=== PATIENT | male | born 1945 | race Hispanic/Latino ===

== ENCOUNTER 2018-10-10 14:12 | Inpatient (IN) | payer MEDICARE, BC ==
[2018-10-10 14:18] VITALS: BMI 29.1
[2018-10-10 15:04] LABS: BASO # 0.01 K/mm3 (0.0-2.0); HEMOGLOBIN 13.2 g/dL (14.0-18.0); LYMPH # 1.5 (1.2-3.4); LYMPH % 7.1 % (22.0-35.0); MEAN CELL VOLUME 87.4 fl (80.0-105.0); MEAN CORPUSCULAR HEMOGLOBIN 28.6 pg (25.0-35.0); MEAN CORPUSCULAR HGB CONC 32.7 g/dl (31.0-37.0); MEAN PLATELET VOLUME 9.3 fl (7.0-11.0); MONO # 1.1 (0.1-0.6); MONO % 5.3 % (1.0-6.0); RBC 4.62 10^6/uL (3.5-6.1); RED CELL DISTRIBUTION WIDTH 13.3 % (11.5-14.5); WHITE BLOOD COUNT 21.3 10^3/uL (4.5-11.0)
[2018-10-10 15:06] LABS: VENOUS BLOOD GAS BASE EXCESS 2.2 mmol/L (0.0-2.0); VENOUS BLOOD GAS PO2 102 mm/Hg (30-55); VENOUS BLOOD PH 7.41 (7.32-7.43)
--- NOTE | 2018-10-10 15:09 | ED PDOC ---
Arrival/HPI - General Historian: Spouse, Caregiver (home health aid) - History of Present Illness Narrative History of Present Illness (Text): 10/10/18 14:58 73 year old M with pmh of PVD and ACS presents with chief complaint of fever w/ cough(baseline) x1wk. Home health aid noted fever at 101.3 F this morning and immediately called Dr. Emanuel who encouraged patient to present to the emergency department. He had a Tylenol @ 1Pm today. On 09/22/18, patient had a cystoscopy performed by Dr. Kumari (urology), started on Augmentin and been having fevers ever since. denies patient having any chills, headache, dizziness, chest pain, shortness of breath, abdominal pain, nausea, vomiting, diarrhea, back pain, neck pain, or any other complaint. PCP: Dr. Emanuel Urology: Dr. Kumari Time/Duration: < week Symptom Onset: Sudden Symptom Course: Unchanged Activities at Onset: Light Context: Home Past Medical History - Provider Review Nursing Documentation Reviewed: Yes Family/Social History - Physician Review Nursing Documentation Reviewed: Yes Family/Social History: Unknown Family HX Allergies/Home Meds Allergies/Adverse Reactions: Allergies No Known Allergies Allergy (Unverified 10/10/18 14:40) Home Medications: Home Meds Medication Instructions Recorded Confirmed Aspirin [Ecotrin] 81 mg PO DAILY 10/10/18 10/10/18 Carbidopa/Levodopa [Sinemet Cr [address] PO TID 10/10/18 10/10/18 mg-100 mg] Clopidogrel [Plavix] 75 mg PO DAILY 10/10/18 10/10/18 Escitalopram [Lexapro] 10 mg PO DAILY 10/10/18 10/10/18 Fluticasone/Vilanterol [Breo 1 puff IH DAILY 10/10/18 10/10/18 Ellipta 200-25 Mcg INH] Glimepiride [Amaryl] 1 mg PO TID 10/10/18 10/10/18 Losartan [Cozaar] 50 mg PO DAILY 10/10/18 10/10/18 Magnisium 2 tab PO DAILY 10/10/18 10/10/18 Metoprolol Succinate [Kapspargo 50 mg PO DAILY 10/10/18 10/10/18 Sprinkle] Tiotropium [place] [Spiriva 2.5 mcg IH DAILY 10/10/18 10/10/18 Respimat] Review of Systems - Physician Review All systems were reviewed & negative as marked: Yes - Review of Systems Constitutional: Fevers ENT: absent: Sore Throat, Rhinorrhea Respiratory: Cough (baseline). absent: SOB, Wheezing Cardiovascular: absent: Chest Pain, Palpitations, Syncope Gastrointestinal: absent: Abdominal Pain, Diarrhea, Nausea, Vomiting, Hematochezia, Hematemesis Genitourinary Male: absent: Dysuria Musculoskeletal: absent: Arthralgias, Back Pain, Neck Pain, Myalgias Skin: absent: Rash, Laceration Neurological: absent: Headache, Dizziness Physical Exam Vital Signs Reviewed: Yes Vital Signs Temp Pulse Resp BP Pulse Ox 10/10/18 14:34 101.7 F H 96 H 18 119/71 93 L Temperature: Febrile Blood Pressure: Normal Pulse: Tachycardic Respiratory Rate: Normal Appearance: Positive for: Well-Appearing, Non-Toxic, Comfortable Pain Distress: None Mental Status: No: Alert and Oriented X 3 (A&0x1) - Systems Exam Head: Present: Atraumatic, Normocephalic Pupils: Present: PERRL Extroacular Muscles: Present: EOMI Conjunctiva: Present: Normal Mouth: Present: Moist Mucous Membranes Respiratory/Chest: Present: Other (coarse breath sounds). No: Respiratory Distress, Accessory Muscle Use Cardiovascular: Present: Normal S1, S2, Tachycardic. No: Murmurs Abdomen: No: Tenderness, Distention, Peritoneal Signs Back: Present: Normal Inspection, Other (no sacral ulcers) Upper Extremity: No: Cyanosis, Edema Lower Extremity: Present: Normal Inspection, Capillary Refill < 2 s. No: Edema Neurological: Present: Speech Normal Skin: Present: Warm, Dry, Normal Color. No: Rashes Psychiatric: Present: Alert, Normal Insight, Normal Concentration. No: Oriented x 3 (0x1) Medical Decision Making ED Course and Treatment: 10/10/18 15:09 Impression: 73 year old M presents with chief complaint of fever w/ cough(baseline) x1wk Plan: -- Labs -- EKG -- Motrin -- Urinalysis -- Reassess and disposition Prior Visits: Notes and results from previous visits were reviewed. Patient was last seen in the emergency department on Progress Notes: 10/10/18 15:03 Code sepsis called 10/10/18 16:[address] Koch who accepts to admit patient and put under his service. - RAD Interpretation Narrative RAD Interpretations (Text): 10/10/18 16:20 Chest X-ray -- No active disease. Radiology Orders: 10/10/18 14:40 CHEST PORTABLE [RAD] Stat Brick Machine Operator: Radiologist - Scribe Statement The provider has reviewed the documentation as recorded by the Miltonibpuma Martin All medical record entries made by the Scribe were at my direction and personally dictated by me. I have reviewed the chart and agree that the record accurately reflects my personal performance of the history, physical exam, medical decision making, and the department course for this patient. I have also personally directed, reviewed, and agree with the discharge instructions and disposition. Disposition/Present on Arrival - Disposition Referrals: Chris Emanuel MD [Primary Care Provider] - Follow up with primary
[2018-10-10 15:10] LABS: INR 1.22; PARTIAL THROMBOPLASTIN TIME 28.2 Seconds (26.9-38.3); PROTHROMBIN TIME 13.5 SECONDS (9.4-12.5)
[2018-10-10 15:13] LABS: ALBUMIN 3.9 g/dL (3.0-4.8); ALT/SGPT 19 U/L (7-56); AST/SGOT 66 U/L (17-59); BLOOD UREA NITROGEN 23 mg/dL (7-21); CALCIUM 9.5 mg/dL (8.4-10.5); GFR NON-AFRICAN AMERICAN > 60
[2018-10-10] MEDS ORDERED: Azithromycin 500MG/NS 250ml 500 MG/250 ML BAG IVPB STA (15:13)
[2018-10-10] MEDS ORDERED: Cefepime 1gm in NS 100ml 1 GM/100 ML BAG IVPB STA (15:13)
[2018-10-10 15:24] LABS: B-TYPE NATRIURETIC PEPTIDE 223 pg/mL (0-450); TROPONIN I < 0.01 ng/mL
--- NOTE | 2018-10-10 15:39 | RAD ---
Date of service: 10/10/2018 HISTORY: Sepsis Patient COMPARISON: 10/20/2014 TECHNIQUE: 1 view obtained. FINDINGS: LUNGS: No active pulmonary disease. PLEURA: No significant pleural effusion identified, no pneumothorax apparent. CARDIOVASCULAR: No aortic atherosclerotic calcification present. Normal cardiac size. No pulmonary vascular congestion. OSSEOUS STRUCTURES: No significant abnormalities. VISUALIZED UPPER ABDOMEN: Normal. OTHER FINDINGS: None. IMPRESSION: No active disease.
[2018-10-10] MEDS ORDERED: Iohexol 350 MG/100 ML VIAL ONE (16:14)
[2018-10-10 16:45] LABS: PH,URINE 5.5 (4.7-8.0); URINE BILIRUBIN NEGATIVE (NEGATIVE); URINE BLOOD NEGATIVE (NEGATIVE); URINE GLUCOSE (UA) 250 mg/dL (NEGATIVE); URINE LEUKOCYTE ESTERASE NEGATIVE Leu/uL (NEGATIVE); URINE PROTEIN TRACE mg/dL (<30 mg/dL); URINE UROBILINOGEN 0.2 E.U./dL (<1 E.U./dL)
[2018-10-10 16:46] LABS: URINE APPEARANCE CLEAR (CLEAR); URINE COLOR YELLOW (YELLOW)
[2018-10-10 17:02] LABS: URINE BACTERIA MOD /hpf
[2018-10-10] MEDS: Insulin Reg-LOW-Coverage SC SCH ×2 (17:21→23:54)
[2018-10-10] MEDS ORDERED: Insulin Regular 1 UNITS/0.01 ML ML ONE (17:25)
--- NOTE | 2018-10-10 18:41 | CT ---
Date of service: 10/10/2018 PROCEDURE: CT Abdomen and Pelvis with contrast HISTORY: abdominal pain COMPARISON: None. TECHNIQUE: Intravenous contrast dose: 100 cc Omnipaque 300. Radiation dose: Total exam DLP = 92.96 mGy-cm. This CT exam was performed using one or more of the following dose reduction techniques: Automated exposure control, adjustment of the mA and/or kV according to patient size, and/or use of iterative reconstruction technique. FINDINGS: LOWER THORAX: Bilateral and dependent lower lobe infiltrates. LIVER: Hepatic steatosis. No focal masses. No intrahepatic bile duct dilatation or perihepatic ascites. GALLBLADDER AND BILE DUCTS: Status post cholecystectomy. No abnormality is seen in the gallbladder fossa. PANCREAS: Unremarkable. No gross lesion or ductal dilatation. SPLEEN: Unremarkable. ADRENALS: Unremarkable. No mass. KIDNEYS AND URETERS: Unremarkable. No hydronephrosis. No solid mass. VASCULATURE: Atherosclerotic calcification and mural plaque present. Findings are seen throughout the aorta which is non aneurysmal. BOWEL: Constipation without fecal impaction or obstruction. APPENDIX: A normal appendix is not visible. No right lower quadrant inflammatory abnormalities detected. PERITONEUM: Unremarkable. No free fluid. No free air. LYMPH NODES: Unremarkable. No enlarged lymph nodes. BLADDER: Unremarkable. REPRODUCTIVE: Enlarged prostate. BONES: No acute fracture. OTHER FINDINGS: None. IMPRESSION: Bilateral lower lobe infiltrates/atelectasis. In no acute intra-abdominal/pelvic abnormalities. Additional benign and/or incidental findings described above.
[2018-10-10 18:54] LABS: VENOUS BLOOD GAS BASE EXCESS 1.7 mmol/L (0.0-2.0); VENOUS BLOOD GAS PO2 71 mm/Hg (30-55); VENOUS BLOOD PH 7.39 (7.32-7.43)
--- NOTE | 2018-10-10 19:05 | PCM.SEPTIC ---
Sepsis Progress Note - Reassessment Type Date of Evaluation: 10/10/18 Time of Evaluation: 19:03 Reassessment Type: Non-invasive reassessment - Non Invasive Reassessment Were the most recent vital sign reviewed: Yes Vital Sign (Latest): Temp Pulse Resp BP Pulse Ox 98.8 F 73 19 101/69 96 10/10/18 17:38 10/10/18 18:03 10/10/18 18:03 10/10/18 17:38 10/10/18 17:38 Cardiovascular: Yes: Regular Rate, Rhythm. No: JVD, Murmur, Bradycardia, Tachycardia Respiratory: Yes: Normal Breath Sounds. No: Accessory Muscle Use, Crackles, Rales, Rhonchi, Respiratory Distress Capillary Refill: Normal (Less than 2 sec) Pulses: Normal Radial, Normal Dorsalis Pedis, Normal Posterior Tibialis Skin: Normal Color, Warm, Dry
[2018-10-10] MEDS: Non Formulary Medication (Tiotropium Bromide [Spiriva Respimat] 2.5 MCG) IH SCH (19:16)
[2018-10-10] MEDS: Carbidopa/Levodopa 25/100 CR PO SCH (19:21)
[2018-10-11] MEDS: Cefepime 1gm in NS 100ml 1 GM/100 ML BAG IVPB SCH ×4 (00:33→21:23)
[2018-10-11 07:06] LABS: HEMOGLOBIN 11.6 g/dL (14.0-18.0); MEAN CELL VOLUME 87.4 fl (80.0-105.0); MEAN CORPUSCULAR HEMOGLOBIN 28.1 pg (25.0-35.0); MEAN CORPUSCULAR HGB CONC 32.1 g/dl (31.0-37.0); MEAN PLATELET VOLUME 9.7 fl (7.0-11.0); RBC 4.13 10^6/uL (3.5-6.1); RED CELL DISTRIBUTION WIDTH 13.5 % (11.5-14.5); WHITE BLOOD COUNT 16.2 10^3/uL (4.5-11.0)
[2018-10-11 07:28] LABS: ALB/GLOB RATIO 0.9 (1.1-1.8); ALBUMIN 3.3 g/dL (3.0-4.8); ALT/SGPT 28 U/L (7-56); AST/SGOT 46 U/L (17-59); BLOOD UREA NITROGEN 18 mg/dL (7-21); GFR NON-AFRICAN AMERICAN > 60
[2018-10-11] MEDS ORDERED: Magnesium Sulfate 2 GM in Sodium Chloride 0.9% 100 ML IV ONE (08:31)
[2018-10-11] MEDS ORDERED: Magnesium Sulfate 2 gm/50 ml 2 GM/50 ML BAG IV ONE (08:39)
[2018-10-11] MEDS: Insulin Reg-LOW-Coverage SC SCH ×4 (08:40→22:00)
[2018-10-11] MEDS: Albuterol-Ipratrop 3 mg / 0.5 (3 ml) UD IH SCH ×3 (09:06→19:50)
[2018-10-11] MEDS: levoFLOXacin 750 mg in D5W 150 ML BAG IVPB SCH (09:44)
[2018-10-11] MEDS: Carbidopa/Levodopa 25/100 CR PO SCH ×3 (09:51→18:31)
[2018-10-11] MEDS ORDERED: METOPROLOL SUCCINATE 50 MG PO SCH (10:00)
--- NOTE | 2018-10-11 10:34 | CARD ---
APPROVED REPORT Date of service: 10/10/2018 EKG Measurement Heart [id number] <Conclusion> Normal sinus rhythm Right bundle branch block Abnormal ECG
--- NOTE | 2018-10-11 11:33 | HP ---
DATE OF EXAM: 10/11/2018 CHIEF COMPLAINT AND HISTORY OF PRESENT ILLNESS: This is a 73-year-old male, who is coming into the hospital with fevers. The patient states that at home he had fever of 102. According to the , the patient has been having cough with productive sputum for the last week. He had seen his primary care doctor, Dr. Emanuel. The patient states that he has been taking Tylenol. He also had a cystoscopy done about [address] Kumari, the patient had been on Augmentin and still having fevers. He has no abdominal pain, no back pain, no dysuria or frequency, no nocturia, no weakness in the arm or the legs. No headaches or dizziness. No dysuria or frequency. REVIEW OF SYMPTOMS: All other review of symptoms are within normal limits except what is mentioned. PAST MEDICAL HISTORY: Peripheral arterial disease, hypertension, diabetes type 2, Parkinson's, and COPD. PAST SURGICAL HISTORY: Status post cholecystectomy. ALLERGIES: NO KNOWN DRUG ALLERGIES. HOME MEDICATIONS: He is taking Breo, magnesium, Amaryl, losartan, aspirin, metoprolol, Plavix, Lexapro, and Spiriva. FAMILY HISTORY: Noncontributory. PHYSICAL EXAMINATION: VITAL SIGNS: T-max is 101.7, pulse of 77, blood pressure 124/77, respirations 20. Height is 5 feet 5 inches, weight 175 pounds, BMI is 29.1. GENERAL: The patient is lying in bed, comfortable, and in no acute distress. HEENT: Atraumatic and normocephalic. Anicteric sclerae. Moist mucosa. [place] conjunctivae. No oral lesions. NECK: No JVD, anterior and posterior adenopathy, thyromegaly, or bruits. CARDIOVASCULAR: S1 and S2 regular. No murmurs, rubs or gallops. LUNGS: Clear to auscultation bilaterally. No wheezes, rales, or rhonchi. ABDOMEN: Bowel sounds are positive. Soft, nontender and nondistended. No hepatosplenomegaly. No rebound and no guarding EXTREMITIES: No cyanosis, clubbing, or edema. NEUROLOGIC: No facial asymmetry. Tongue is midline. No uvula deviation. Power is 5/5 upper extremities and lower extremities. Sensation intact in upper extremities and lower extremities. PSYCHIATRIC: He is awake, alert and oriented x3. No anxiety or depression. She has normal affect. GENITOURINARY: No CVA tenderness. VASCULAR: 2+ pulses in the carotid pulses and pedal pulses. SKIN: No erythema or nodules SPINE: Shows normal curvature. The patient has a mild resting tremor in the right hand. LABORATORY DATA: White count is 21.3. INR is 1.2, lactate is 4.2, sodium is 135, creatinine is 0.7, magnesium is 1.5. Urine shows white blood cells 5 to 10, glucose is 250. Chest x-rays done shows no active disease. CT of the abdomen and pelvis done shows bilateral lower lobe infiltrates. ASSESSMENT: 1. Sepsis. 2. Hospital-acquired pneumonia. 3. Hypertension. 4. Diabetes type 2. 5. Parkinson's. 6. Chronic obstructive pulmonary disease. PLAN: The patient is going to be admitted to the hospital, the patient has fever, elevated white cell count. He had a procedure about 3 weeks ago. He had a chest CT that shows bilateral infiltrates. The patient most likely has a hospital-acquired pneumonia and going to be admitted to the hospital for further management. The patient is going to be placed on IV antibiotics with cefepime and will be seen by Infectious Disease. He has blood cultures and urine cultures that had been ordered. He is going to get repeat blood work tomorrow. The patient has low magnesium, so I will replace his magnesium. The patient is receiving Plavix at home and will continue he is on carbidopa and levodopa for his Parkinson's, this will be continued as well. He is on heart healthy diet. The patient will also get DuoNeb treatments. I will get his Application Analyst, Dr. Gonzalez, to see the patient. He is currently on telemetry, I will discontinue telemetry. I did speak to the patient's at the bedside to give an update and the patient's diagnosis and plan of care. He will most likely need physical therapy as well, because of the history of Parkinson's and he will most likely get decondition. We will continue to follow closely. Jermaine Koch MD [facility] # [id number]
--- NOTE | 2018-10-11 14:53 | CP.PCM.APN ---
Subjective - Date & Time of Evaluation Date of Evaluation: 10/11/18 Time of Evaluation: 09:30 - Subjective Subjective: pt seen and examined at bedside, pt in NAD, no acute events overnight per staff Review of Systems - Constitutional Constitutional: As Per HPI Objective - Vital Signs/Intake and Output Vital Signs (last 24 hours): Temp Pulse Resp BP Pulse Ox 97.8 F 83 20 138/77 96 10/11/18 12:00 10/11/18 12:00 10/11/18 12:00 10/11/18 12:00 10/10/18 17:38 Intake and Output: 10/11/18 10/11/18 06:59 18:59 Intake Total 120 Balance 120 - Medications Medications: Current Medications Albuterol/Ipratropium (Duoneb 3 Mg/0.5 Mg (3 Ml) Ud) 3 ml IH TIDRESP [facility] Last Admin: 10/11/18 14:03 Dose: 3 ml Aspirin (Ecotrin) 81 mg PO DAILY [facility] Last Admin: 10/11/18 09:53 Dose: 81 mg Carbidopa/Levodopa (Sinemet Cr) 1 tab PO TID [facility] Last Admin: 10/11/18 09:51 Dose: 1 tab Clopidogrel Bisulfate (Plavix) 75 mg PO DAILY [facility] Last Admin: 10/11/18 09:45 Dose: 75 mg Escitalopram Oxalate (Lexapro) 10 mg PO DAILY [facility] Last Admin: 10/11/18 09:50 Dose: 10 mg Glimepiride (Amaryl) 1 mg PO TID [facility] Last Admin: 10/11/18 09:50 Dose: 1 mg Cefepime HCl (Maxipime 1gm) 1 gm in 100 mls @ 100 mls/hr IVPB Q8 [facility]; Protocol Stop: 10/19/18 22:01 Last Admin: 10/11/18 06:00 Dose: 100 mls/hr Insulin Human Regular (Humulin R Low) 0 units SC ACHS [facility]; Protocol Last Admin: 10/11/18 08:40 Dose: 1 unit Levofloxacin/Dextrose (Levaquin 750mg) 750 mg IVPB DAILY [facility]; Protocol Stop: 10/20/18 10:01 Last Admin: 10/11/18 09:44 Dose: 750 mg Losartan Potassium (Cozaar) 50 mg PO DAILY [facility] Last Admin: 10/11/18 09:45 Dose: 50 mg Non-Formulary Medication (Tiotropium [place] [Spiriva Respimat]) 5 mcg IH DAILY [facility] Non-Formulary Medication (Metoprolol Succinate [Kapspargo Sprinkle]) 50 mg PO DAILY [facility] - Labs Labs: 10/11/18 06:30 10/11/18 06:30 PT 13.5 SECONDS (9.4-12.5) H 10/10/18 14:50 INR 1.22 10/10/18 14:50 APTT 28.2 Seconds (26.9-38.3) 10/10/18 14:50 - Constitutional Appears: Non-toxic - Head Exam Head Exam: ATRAUMATIC, NORMOCEPHALIC - Eye Exam Eye Exam: Normal appearance Pupil Exam: NORMAL ACCOMODATION - Respiratory Exam Respiratory Exam: Decreased Breath Sounds, NORMAL BREATHING PATTERN - Cardiovascular Exam Cardiovascular Exam: Tachycardia, +S1, +S2 - GI/Abdominal Exam GI & Abdominal Exam: Soft, Normal Bowel Sounds - Neurological Exam Neurological Exam: Alert, Awake Additional comments: OCHOA - Psychiatric Exam Psychiatric exam: Normal Affect, Normal Mood - Skin Skin Exam: Dry, Intact Assessment and Plan - Assessment and Plan (Free Text) Plan: ITS Impressions Chest X-Ray 10/10/18 14:40 IMPRESSION: No active disease. Abdomen/Pelvis CT 10/10/18 15:31 IMPRESSION: Bilateral lower lobe infiltrates/atelectasis. In no acute intra-abdominal/pelvic abnormalities. Additional benign and/or incidental findings described above. A/P 73 yr old male with pmh sig for PVD and ACS, recent cysto 3 weeks ago admitted w ith c/o fever and cough. Fevers at home 101.3 noted, pt with leukocytosis 21.3, lactate initially 4.2 and rectal temp at 101.7. Pt was admitted for further workup. Ct scan showed bilateral lobe infiltrates and patient is now admitted for sepsis with pulmonary and ID consultation and IV antibiotic regimen. Pancultures pending will follow up BPCI/TIC - BPCIA/TIC Educated pt/family on BPCIA/CIR/Med to Bed Programs: Yes Flyers given, including [facility] Beneficiary letter: Yes Pt/family verbalized understanding & agreed to program: Yes
[2018-10-11] MEDS: TIOTROPIUM BROMIDE 5 MCG IH SCH (15:34)
[2018-10-11] MEDS: METOPROLOL SUCCINATE 50 MG PO SCH (15:35)
[2018-10-11] MEDS: Non Formulary Medication (Tiotropium Bromide [Spiriva Respimat] 2.5 MCG) IH SCH (17:50)
[2018-10-11] MEDS: Vancomycin 1gm in NS 250ml 1 GM/250 ML BAG IVPB SCH (18:17)
--- NOTE | 2018-10-11 19:14 | CP.PCM.PN ---
<Aram Connolly - Last Filed: 10/11/18 19:11> Subjective - Date & Time of Evaluation Date of Evaluation: 10/11/18 Time of Evaluation: 18:40 - Subjective Subjective: S: Patient was found to be in mild respiratory distress. Patient reported pain in his frontal and maxillary sinuses and felt like he was sweating. O: Head: pain on palpation of frontal and maxillary sinus Heart: RRR Resp: CTA B/L, reduced breath sounds at bases Abdomen: nontender, mildly distended, bowel sounds auscultated A and P: Upon presentation, vitals were within normal limits. Patient was saturating at 94-95% on nasal cannula on presentation. I started patient on flonase and mucinex as he seems congested at this time. Objective - Vital Signs/Intake and Output Vital Signs (last 24 hours): Temp Pulse Resp BP Pulse Ox 97.4 F L 76 19 113/69 96 10/11/18 18:00 10/11/18 18:00 10/11/18 18:00 10/11/18 18:00 10/10/18 17:38 - Medications Medications: Current Medications Albuterol/Ipratropium (Duoneb 3 Mg/0.5 Mg (3 Ml) Ud) 3 ml IH TIDRESP [facility] Last Admin: 10/11/18 14:03 Dose: 3 ml Aspirin (Ecotrin) 81 mg PO DAILY [facility] Last Admin: 10/11/18 09:53 Dose: 81 mg Carbidopa/Levodopa (Sinemet Cr) 1 tab PO TID [facility] Last Admin: 10/11/18 18:31 Dose: 1 tab Clopidogrel Bisulfate (Plavix) 75 mg PO DAILY [facility] Last Admin: 10/11/18 09:45 Dose: 75 mg Escitalopram Oxalate (Lexapro) 10 mg PO DAILY [facility] Last Admin: 10/11/18 09:50 Dose: 10 mg Fluticasone Propionate (Flonase) 1 actuation NS DAILY [facility] Glimepiride (Amaryl) 1 mg PO TID [facility] Last Admin: 10/11/18 18:20 Dose: 1 mg Guaifenesin (Mucinex [place]) 600 mg PO BID [facility] Cefepime HCl (Maxipime 1gm) 1 gm in 100 mls @ 100 mls/hr IVPB Q8 [facility]; Protocol Stop: 10/19/18 22:01 Last Admin: 10/11/18 15:31 Dose: 100 mls/hr Vancomycin HCl (Vancomycin 1gm) 1 gm in 250 mls @ 167 mls/hr IVPB Q12H [facility]; Protocol Stop: 10/20/18 15:31 Last Admin: 10/11/18 18:17 Dose: 167 mls/hr Insulin Human Regular (Humulin R Low) 0 units SC ACHS [facility]; Protocol Last Admin: 10/11/18 18:31 Dose: 1 unit Levofloxacin/Dextrose (Levaquin 750mg) 750 mg IVPB DAILY [facility]; Protocol Stop: 10/20/18 10:01 Last Admin: 10/11/18 09:44 Dose: 750 mg Losartan Potassium (Cozaar) 50 mg PO DAILY [facility] Last Admin: 10/11/18 09:45 Dose: 50 mg Non-Formulary Medication (Tiotropium [place] [Spiriva Respimat]) 5 mcg IH DAILY [facility] Last Admin: 10/11/18 15:34 Dose: 5 mcg Non-Formulary Medication (Metoprolol Succinate [Kapspargo Sprinkle]) 50 mg PO DAILY [facility] Last Admin: 10/11/18 15:35 Dose: 50 mg - Labs Labs: 10/11/18 06:30 10/11/18 06:30 PT 13.5 SECONDS (9.4-12.5) H 10/10/18 14:50 INR 1.22 10/10/18 14:50 APTT 28.2 Seconds (26.9-38.3) 10/10/18 14:50 <Jermaine Koch S - Last Filed: 10/12/18 06:51> Objective - Vital Signs/Intake and Output Vital Signs (last 24 hours): Temp Pulse Resp BP Pulse Ox 98 F 70 18 148/91 H 95 10/12/18 06:00 10/12/18 06:00 10/12/18 06:00 10/12/18 06:00 10/12/18 00:01 Intake and Output: 10/11/18 10/12/18 18:59 06:59 Intake Total 1890 Output Total 400 Balance 1490 - Medications Medications: Current Medications Albuterol/Ipratropium (Duoneb 3 Mg/0.5 Mg (3 Ml) Ud) 3 ml IH TIDRESP [facility] Last Admin: 10/11/18 19:50 Dose: 3 ml Aspirin (Ecotrin) 81 mg PO DAILY [facility] Last Admin: 10/11/18 09:53 Dose: 81 mg Carbidopa/Levodopa (Sinemet Cr) 1 tab PO TID [facility] Last Admin: 10/11/18 18:31 Dose: 1 tab Clopidogrel Bisulfate (Plavix) 75 mg PO DAILY [facility] Last Admin: 10/11/18 09:45 Dose: 75 mg Escitalopram Oxalate (Lexapro) 10 mg PO DAILY [facility] Last Admin: 10/11/18 09:50 Dose: 10 mg Fluticasone Propionate (Flonase) 1 actuation NS DAILY [facility] Glimepiride (Amaryl) 1 mg PO TID [facility] Last Admin: 10/11/18 18:20 Dose: 1 mg Guaifenesin (Mucinex [place]) 600 mg PO BID [facility] Last Admin: 10/11/18 21:22 Dose: 600 mg Cefepime HCl (Maxipime 1gm) 1 gm in 100 mls @ 100 mls/hr IVPB Q8 [facility]; Protocol Stop: 10/19/18 22:01 Last Admin: 10/12/18 06:01 Dose: 100 mls/hr Vancomycin HCl (Vancomycin 1gm) 1 gm in 250 mls @ 167 mls/hr IVPB Q12H [facility]; Protocol Stop: 10/20/18 15:31 Last Admin: 10/12/18 04:07 Dose: 167 mls/hr Insulin Human Regular (Humulin R Low) 0 units SC ACHS [facility]; Protocol Last Admin: 10/11/18 22:00 Dose: Not Given Levofloxacin/Dextrose (Levaquin 750mg) 750 mg IVPB DAILY [facility]; Protocol Stop: 10/20/18 10:01 Last Admin: 10/11/18 09:44 Dose: 750 mg Losartan Potassium (Cozaar) 50 mg PO DAILY [facility] Last Admin: 10/11/18 09:45 Dose: 50 mg Non-Formulary Medication (Tiotropium [place] [Spiriva Respimat]) 5 mcg IH DAILY [facility] Last Admin: 10/11/18 15:34 Dose: 5 mcg Non-Formulary Medication (Metoprolol Succinate [Kapspargo Sprinkle]) 50 mg PO DAILY [facility] Last Admin: 10/11/18 15:35 Dose: 50 mg - Labs Labs: 10/11/18 06:30 10/11/18 06:30 PT 13.5 SECONDS (9.4-12.5) H 10/10/18 14:50 INR 1.22 10/10/18 14:50 APTT 28.2 Seconds (26.9-38.3) 10/10/18 14:50 Assessment and Plan - Assessment and Plan (Free Text) Plan: Pt not seen. Note reviewed
--- NOTE | 2018-10-11 19:41 | CON ---
DATE OF CONSULTATION: 10/11/2018 The patient is seen earlier today in room 260, bed 1. CHIEF COMPLAINT: Fever x1 day and cough x1 week. HISTORY OF PRESENT ILLNESS: This is a 73-year-old male with history of acute coronary syndrome, coronary artery disease, peripheral vascular disease. The patient had a cystoscopy last month on 09/22/2018 and was given Augmentin and now is admitted with fevers, chills, and cough, and insignificant cough. The cough is chronic although now it has worsened. REVIEW OF SYSTEMS: Review of systems reveals no abdominal pain, diarrhea, or constipation. No bright red blood per rectum. No melena. A 12-point review of systems is performed. PAST MEDICAL HISTORY: Significant for acute coronary syndrome, coronary artery disease, peripheral vascular disease. PAST SURGICAL HISTORY: Significant for recent cystoscopy on 09/22/2018. ALLERGIES: THE PATIENT HAS NO KNOWN ALLERGIES. MEDICATIONS: Medications at home reveals the patient to be on Lexapro, Amaryl, carbidopa/levodopa, and the patient has Parkinson's disease also. PHYSICAL EXAMINATION: GENERAL: The patient is in bed, in no acute distress. His truck trailer mechanic is present and answering questions for him. VITAL SIGNS: Temperature of 101.7, respiratory rate of 20, and heart rate of 96 on admission with a blood pressure of 124/77. HEENT: Examination of HEENT is unremarkable. NECK: Supple. LUNGS: Have decreased breath sounds. HEART: Normal S1, S2. ABDOMEN: Soft, nontender. LABORATORY DATA: Laboratory examination reveals a white count is 21,000, hemoglobin of 13, platelets 325. Chemistries are noted. The patient's procalcitonin is less than 0.05 and creatinine is 0.5. Urinalysis is noted. Microbiology is pending. The patient had a chest x-ray, which was reported to be negative; however, a CAT scan of the abdomen and pelvis revealed an infiltrate. The patient's EKG showed a QTC of 452. ASSESSMENT AND PLAN: A 73-year-old male with Parkinson's disease, diabetes, chronic obstructive lung disease, coronary artery disease, peripheral vascular disease, and a cystoscopy on 09/22/2018, right now presenting with sepsis with bilateral healthcare-associated pneumonia, although the procalcitonin is reported to be negative, we will treat the patient with Levaquin, cefepime, and vancomycin pending blood cultures, MRSA screens, urine cultures, sputum cultures, and urine for Legionella antigen, and we will also repeat procalcitonin. We will follow closely with you pending initial workup results and culture results and imaging. Jose Whitley MD [facility] # [id number]
[2018-10-11] MEDS: guaiFENesin 600 mg ER Tab PO SCH (21:22)
[2018-10-12] MEDS: Vancomycin 1gm in NS 250ml 1 GM/250 ML BAG IVPB SCH (04:07)
[2018-10-12] MEDS: Cefepime 1gm in NS 100ml 1 GM/100 ML BAG IVPB SCH ×3 (06:01→21:33)
[2018-10-12 06:52] LABS: MEAN CELL VOLUME 88.1 fl (80.0-105.0); MEAN CORPUSCULAR HEMOGLOBIN 27.8 pg (25.0-35.0); MEAN CORPUSCULAR HGB CONC 31.6 g/dl (31.0-37.0); MEAN PLATELET VOLUME 9.5 fl (7.0-11.0); RBC 3.95 10^6/uL (3.5-6.1); RED CELL DISTRIBUTION WIDTH 13.4 % (11.5-14.5); WHITE BLOOD COUNT 8.8 10^3/uL (4.5-11.0)
[2018-10-12 07:14] LABS: ALBUMIN 3.2 g/dL (3.0-4.8); ALT/SGPT 26 U/L (7-56); AST/SGOT 37 U/L (17-59); BLOOD UREA NITROGEN 16 mg/dL (7-21); CALCIUM 8.8 mg/dL (8.4-10.5); GFR NON-AFRICAN AMERICAN > 60
[2018-10-12] MEDS: Albuterol-Ipratrop 3 mg / 0.5 (3 ml) UD IH SCH ×3 (07:54→19:29)
[2018-10-12] MEDS: Insulin Reg-LOW-Coverage SC SCH ×4 (08:21→21:32)
[2018-10-12] MEDS: guaiFENesin 600 mg ER Tab PO SCH ×2 (09:27→18:06)
[2018-10-12] MEDS: Carbidopa/Levodopa 25/100 CR PO SCH ×3 (09:27→18:06)
[2018-10-12] MEDS: METOPROLOL SUCCINATE 50 MG PO SCH (09:30)
[2018-10-12] MEDS: TIOTROPIUM BROMIDE 5 MCG IH SCH (09:30)
[2018-10-12] MEDS: levoFLOXacin 750 mg in D5W 150 ML BAG IVPB SCH (09:31)
[2018-10-12] MEDS: Fluticasone Nasal 50 mcg/Spray NS SCH (09:33)
--- NOTE | 2018-10-12 09:38 | PN ---
DATE: 10/12/2018 SUBJECTIVE: The patient has no complaints of any chest pain. No shortness of breath. No headaches. PHYSICAL EXAMINATION: VITAL SIGNS: Temperature is 98, pulse is 70, blood pressure is 140/91 and respirations 18. GENERAL: The patient is lying in bed, flat, comfortable. HEENT: No oral lesion. Anicteric sclerae. Moist mucosa. NECK: No JVD, adenopathy, or thyromegaly. CARDIOVASCULAR: S1 and S2, regular. No murmurs, rubs, or gallops. LUNGS: Clear to auscultation bilaterally. No wheeze, rales, or rhonchi. ABDOMEN: Bowel sounds are positive, soft, nontender and nondistended. EXTREMITIES: No cyanosis, clubbing or edema. LABORATORY DATA: White count of 8.8, hemoglobin 11, creatinine is 0.6. ASSESSMENT: 1. Hospital-acquired pneumonia. 2. Sepsis. 3. Hypertension. 4. Progressive supranuclear palsy. 5. Diabetes type 2. 6. Chronic obstructive pulmonary disease. PLAN: The patient is currently on losartan for hypertension. He is going to be on aspirin daily. He is on Lexapro. He is going to continue with Levaquin for antibiotics. The patient is on carbidopa and levodopa. He is on heart healthy diet. His white cell count is normal 8.8 this morning. He says he is feeling better. He had magnesium that was low that is normalize as well. I will discontinue telemetry. The patient was seen by physical therapy and it is recommended, the patient go home with . Jermaine Koch MD
--- NOTE | 2018-10-12 15:23 | PN ---
DATE: 10/12/2018 SUBJECTIVE: The patient is in bed, in no acute distress, nontoxic. PHYSICAL EXAMINATION: VITAL SIGNS: On exam, temperature is 97, blood pressure is 140/80, respiratory rate of 18. HEENT: Examination of HEENT is unremarkable. NECK: Supple. LUNGS: Have decreased breath sounds. HEART: Normal S1, S2. ABDOMEN: Soft. LABORATORY DATA: Laboratory examination reveals a white count is 8.8, hemoglobin of 11. BUN of 16, creatinine of 0.6 procalcitonin 0.07. Urinalysis is noted. Serology is reviewed. Urine for Legionella antigen is negative. Microbiology reveals the patient's blood cultures are negative. Urine cultures are negative. Review of orders reveals the patient to be on IV Levaquin and cefepime and vancomycin. ASSESSMENT AND PLAN: A 73-year-old male with a history of coronary artery disease and , peripheral vascular disease, Parkinson's disease, diabetes, chronic obstructive lung disease, had cystoscopy on 09/22/2018, now presenting with sepsis, bilateral healthcare associated pneumonia. Procalcitonin is negative thus far the blood cultures and urine cultures are negative and urine Legionella is negative and procalcitonin 0.07 today and 0.05 speaks against bacterial pneumonia. The patient's white count is improved. Can discontinue the vancomycin. Review of Dr. Moreira's note from today and may be able to switch the antibiotics to p.o. Levaquin and discontinue the Maxipime within the next 24 hours and complete with p.o. Levaquin. The patient appears to be improving.. We will check on the MRSA screen which is pending. Jose Whitley MD
[2018-10-13] MEDS: Cefepime 1gm in NS 100ml 1 GM/100 ML BAG IVPB SCH (05:03)
--- NOTE | 2018-10-13 06:14 | CP.PCM.PN ---
Subjective - Date & Time of Evaluation Date of Evaluation: 10/13/18 Time of Evaluation: 06:13 - Subjective Subjective: tbd Objective - Vital Signs/Intake and Output Vital Signs (last 24 hours): Temp Pulse Resp BP Pulse Ox 97.8 F 68 18 145/84 99 10/13/18 06:00 10/13/18 06:00 10/13/18 06:00 10/13/18 06:00 10/13/18 06:00 Intake and Output: 10/12/18 10/13/18 18:59 06:59 Intake Total 250 1576 Output Total 7 Balance 250 1569 - Medications Medications: Current Medications Albuterol/Ipratropium (Duoneb 3 Mg/0.5 Mg (3 Ml) Ud) 3 ml IH TIDRESP [facility] Last Admin: 10/12/18 19:29 Dose: 3 ml Aspirin (Ecotrin) 81 mg PO DAILY [facility] Last Admin: 10/12/18 09:27 Dose: 81 mg Carbidopa/Levodopa (Sinemet Cr) 1 tab PO TID [facility] Last Admin: 10/12/18 18:06 Dose: 1 tab Clopidogrel Bisulfate (Plavix) 75 mg PO DAILY [facility] Last Admin: 10/12/18 09:30 Dose: 75 mg Escitalopram Oxalate (Lexapro) 10 mg PO DAILY [facility] Last Admin: 10/12/18 09:30 Dose: 10 mg Fluticasone Propionate (Flonase) 1 actuation NS DAILY [facility] Last Admin: 10/12/18 09:33 Dose: 1 actuation Glimepiride (Amaryl) 1 mg PO TID [facility] Last Admin: 10/12/18 18:06 Dose: 1 mg Guaifenesin (Mucinex La) 600 mg PO BID [facility] Last Admin: 10/12/18 18:06 Dose: 600 mg Cefepime HCl (Maxipime 1gm) 1 gm in 100 mls @ 100 mls/hr IVPB Q8 [facility]; Protocol Stop: 10/19/18 22:01 Last Admin: 10/13/18 05:03 Dose: 100 mls/hr Insulin Human Regular (Humulin R Low) 0 units SC ACHS [facility]; Protocol Last Admin: 10/12/18 21:32 Dose: Not Given Levofloxacin (Levaquin) 500 mg PO DAILY [facility]; Protocol Stop: 10/18/18 10:01 Losartan Potassium (Cozaar) 50 mg PO DAILY [facility] Last Admin: 10/12/18 09:29 Dose: 50 mg Non-Formulary Medication (Tiotropium Tamms [Spiriva Respimat]) 5 mcg IH DAILY [facility] Last Admin: 10/12/18 09:30 Dose: 5 mcg Non-Formulary Medication (Metoprolol Succinate [Kapspargo Sprinkle]) 50 mg PO DAILY [facility] Last Admin: 10/12/18 09:30 Dose: 50 mg - Labs Labs: 10/12/18 06:20 10/12/18 06:20 PT 13.5 SECONDS (9.4-12.5) H 10/10/18 14:50 INR 1.22 10/10/18 14:50 APTT 28.2 Seconds (26.9-38.3) 10/10/18 14:50
[2018-10-13] MEDS: Insulin Reg-LOW-Coverage SC SCH ×4 (07:55→22:51)
[2018-10-13] MEDS: Albuterol-Ipratrop 3 mg / 0.5 (3 ml) UD IH SCH ×3 (09:01→21:10)
--- NOTE | 2018-10-13 09:10 | PN ---
DATE: 10/13/2018 SUBJECTIVE: The patient is in bed in no acute distress, nontoxic. PHYSICAL EXAMINATION: VITAL SIGNS: Temperature is 98, blood pressure is 120/70, respiratory rate of 18. HEENT: Unremarkable. NECK: Supple. LUNGS: Have decreased breath sounds. HEART: Normal S1 and S2. ABDOMEN: Soft. LABORATORY DATA: Reveals a white count of 8.8, hemoglobin of 11. Chemistries are noted. Urinalysis is reviewed. Microbiology reveals sputum cultures pending. Nares is negative. Urine cultures negative. Blood cultures are negative. The patient's procalcitonin is negative x2. MEDICATIONS: Review of orders reveals the patient to be on p.o. Levaquin and IV cefepime. ASSESSMENT AND PLAN: This is a 73-year-old male who was seen earlier today in 260 with a history of coronary artery disease, peripheral vascular disease, Parkinson's disease and diabetes, chronic obstructive lung disease, had a cystoscopy on 09/22/2018, presenting with sepsis for bilateral healthcare-associated pneumonia, negative procalcitonin x2, negative pancultures. The patient is doing much better. We will discontinue the Maxipime, complete 7 days of Levaquin p.o., today is day #4 of antibiotics, will complete three more days of p.o. Levaquin. Jose Whitley MD
[2018-10-13] MEDS: METOPROLOL SUCCINATE 50 MG PO SCH (09:54)
[2018-10-13] MEDS: Fluticasone Nasal 50 mcg/Spray NS SCH (09:55)
[2018-10-13] MEDS: guaiFENesin 600 mg ER Tab PO SCH ×2 (09:57→17:58)
[2018-10-13] MEDS: Carbidopa/Levodopa 25/100 CR PO SCH ×3 (09:58→17:57)
[2018-10-13] MEDS: levoFLOXacin 500 MG TAB PO SCH (09:58)
[2018-10-13] MEDS: TIOTROPIUM BROMIDE 5 MCG IH SCH (10:01)
--- NOTE | 2018-10-13 13:52 | PN ---
DATE: 10/13/2018 SUBJECTIVE: The patient has no complaints of any chest pain. No shortness of breath. No headaches or dizziness. He does have a cough that is better. PHYSICAL EXAMINATION: VITAL SIGNS: Temperature is 97.8, pulse is 68, blood pressure is 145/84, respirations 18. GENERAL: The patient is lying in bed, flat, comfortable. HEENT: No oral lesion. Anicteric sclerae. Moist mucosa. NECK: No JVD, adenopathy, or thyromegaly. CARDIOVASCULAR: S1 and S2, regular. No murmurs, rubs, or gallops. LUNGS: Clear to auscultation bilaterally. No wheeze, rales, or rhonchi. ABDOMEN: Bowel sounds are positive, soft, nontender and nondistended. EXTREMITIES: no cyanosis, clubbing or edema. LABS: White count of 8.8, hemoglobin 11, creatinine is 0.6. Urine culture and blood cultures have been negative. ASSESSMENT: 1. Hospital-acquired pneumonia. 2. Sepsis, improved. 3. Hypertension. 4. Progressive supranuclear palsy. 5. Diabetes type 2. 6. Chronic obstructive pulmonary disease. PLAN: The patient is currently comfortable. He is on Amaryl for his diabetes and losartan for hypertension. He is receiving Levaquin for antibiotic. He is on Lexapro for his anxiety. He is on Plavix. He is going to continue with carbidopa and levodopa. He is on a heart-healthy diet. I did speak to the patient's family at the bedside to give them update on the patient's diagnosis and plan for care. We will continue current treatment. I did review the note of Dr. Whitley. Jermaine Koch MD
[2018-10-14] MEDS: Insulin Reg-LOW-Coverage SC SCH ×4 (07:30→22:21)
[2018-10-14] MEDS: Albuterol-Ipratrop 3 mg / 0.5 (3 ml) UD IH SCH ×3 (07:37→20:30)
[2018-10-14] MEDS: levoFLOXacin 500 MG TAB PO SCH (11:03)
[2018-10-14] MEDS: guaiFENesin 600 mg ER Tab PO SCH ×2 (11:03→17:24)
[2018-10-14] MEDS: Carbidopa/Levodopa 25/100 CR PO SCH ×3 (11:04→17:23)
[2018-10-14] MEDS: TIOTROPIUM BROMIDE 5 MCG IH SCH (11:07)
[2018-10-14] MEDS: METOPROLOL SUCCINATE 50 MG PO SCH (11:07)
[2018-10-14] MEDS: Fluticasone Nasal 50 mcg/Spray NS SCH (11:18)
[2018-10-14 14:46] VITALS: O2SAT 95
--- NOTE | 2018-10-14 14:55 | PN ---
DATE: 10/14/2018 SUBJECTIVE: The patient is in bed, in no acute distress, nontoxic. PHYSICAL EXAMINATION: VITAL SIGNS: Temperature is 98, blood pressure is 140/80, respiratory rate of 18. HEENT: Unremarkable. NECK: Supple. LUNGS: Have decreased breath sounds. HEART: Normal S1, S2. ABDOMEN: Soft. LABORATORY DATA: Laboratory examination reveals a white count is 8.8, hemoglobin of 11. Chemistries are noted and urinalysis is noted and serology is reviewed. Review of orders reveals the patient is on p.o. Levaquin. ASSESSMENT AND PLAN: This is a 73-year-old male who was seen earlier today in 568, bed 2 with a history of coronary artery disease, peripheral vascular disease, Parkinson's disease, diabetes, chronic obstructive lung disease and cystoscopy, presenting with sepsis with bilateral healthcare-associated pneumonia with negative procalcitonin x2. Pancultures are negative. Today is day #5 of p.o. Levaquin, would complete 5 to 7 days. Jose Whitley MD
--- NOTE | 2018-10-14 16:15 | PN ---
DATE: 10/14/2018 SUBJECTIVE: The patient has no complaints of any chest pain or shortness of breath. No headaches or dizziness. PHYSICAL EXAMINATION: VITAL SIGNS: Temperature is 98, pulse is 67, blood pressure is 145/82, and respirations 18. GENERAL: The patient is lying in bed, flat, comfortable. HEENT: No oral lesion. Anicteric sclerae. Moist mucosa. NECK: No JVD, adenopathy, or thyromegaly. CARDIOVASCULAR: S1 and S2, regular. No murmurs, rubs, or gallops. LUNGS: Clear to auscultation bilaterally. No wheeze, rales, or rhonchi. ABDOMEN: Bowel sounds are positive, soft, nontender and nondistended. EXTREMITIES: No cyanosis, clubbing, or edema. LABORATORY DATA: White count of 8.8, hemoglobin is 11, and creatinine is 0.6. ASSESSMENT: 1. Hospital-acquired pneumonia. 2. Sepsis, improving. 3. Hypertension. 4. Progressive supranuclear palsy. 5. Diabetes type 2. 6. Chronic obstructive pulmonary disease. PLAN: The patient is currently comfortable. Blood cultures have been negative. Urine cultures have been negative. The patient is on losartan for hypertension. He is on Amaryl for diabetes. He is on Levaquin for antibiotics. The patient is receiving Mucinex for cough. The patient is on Plavix. He is on a heart-healthy diet. The patient's white count has improved. We will repeat the patient's blood work tomorrow. I did speak to the patient's aide. No issues. He is eating well. He continues to have diaphoresis at times. Jermaine Koch MD
[2018-10-14 22:49] VITALS: BP 136/80; PULSE 64; RESP 20; TEMP 97.5
[2018-10-15 07:19] LABS: MEAN CELL VOLUME 87.3 fl (80.0-105.0); MEAN CORPUSCULAR HEMOGLOBIN 28.2 pg (25.0-35.0); MEAN CORPUSCULAR HGB CONC 32.3 g/dl (31.0-37.0); MEAN PLATELET VOLUME 9.1 fl (7.0-11.0); RBC 4.26 10^6/uL (3.5-6.1); RED CELL DISTRIBUTION WIDTH 13.2 % (11.5-14.5); WHITE BLOOD COUNT 6.9 10^3/uL (4.5-11.0)
[2018-10-15 07:58] LABS: ALBUMIN 3.4 g/dL (3.0-4.8); ALT/SGPT 20 U/L (7-56); AST/SGOT 42 U/L (17-59); BLOOD UREA NITROGEN 15 mg/dL (7-21); GFR NON-AFRICAN AMERICAN > 60
[2018-10-15] MEDS: Albuterol-Ipratrop 3 mg / 0.5 (3 ml) UD IH SCH (08:00)
[2018-10-15] MEDS: Insulin Reg-LOW-Coverage SC SCH ×2 (08:48→11:49)
[2018-10-15] MEDS: guaiFENesin 600 mg ER Tab PO SCH (09:38)
[2018-10-15] MEDS: levoFLOXacin 500 MG TAB PO SCH (09:38)
[2018-10-15] MEDS: Carbidopa/Levodopa 25/100 CR PO SCH (09:38)
[2018-10-15] MEDS: Fluticasone Nasal 50 mcg/Spray NS SCH (09:39)
[2018-10-15] MEDS: METOPROLOL SUCCINATE 50 MG PO SCH (09:39)
[2018-10-15] MEDS: TIOTROPIUM BROMIDE 5 MCG IH SCH (09:40)
--- NOTE | 2018-10-15 13:01 | CP.PCM.DIS ---
<Laci Negrete - Last Filed: 10/15/18 16:21> Provider - Provider Date of Admission: 10/10/18 16:06 Attending physician: Jermaine Koch MD Primary care physician: Chris Emanuel MD Consults: 10/10/18 16:07 Consult [Physician Consult] Stat Comment: Consulting Provider: Jose Whitley Consulting Physician: Jose Whitley Reason for Consult: sepsis 10/11/18 08:11 Physician Consult Routine Comment: Consulting Provider: Don Gonzalez Consulting Physician: Don Gonzalez Reason for Consult: PNA Time Spent in preparation of Discharge (in minutes): 45 Diagnosis - Discharge Diagnosis (1) Sepsis Status: Acute (2) HCAP (healthcare-associated pneumonia) Status: Acute (3) HTN (hypertension) Status: Chronic (4) DM2 (diabetes mellitus, type 2) Status: Chronic (5) COPD (chronic obstructive pulmonary disease) Status: Chronic (6) Parkinson disease Status: Chronic (7) CAD (coronary artery disease) Status: Chronic Hospital Course - Lab Results Lab Results: Micro Results 10/10/18 15:15 Blood Blood Culture - Preliminary NO GROWTH AFTER 4 DAYS 10/10/18 14:50 Blood Blood Culture - Preliminary NO GROWTH AFTER 4 DAYS 10/12/18 06:30 Sputum Gram Stain - Final 10/12/18 06:30 Sputum Sputum Culture - Final NORMAL SAPROPHYTIC SHALINI 10/11/18 06:23 Naris MRSA Culture (Admit) - Final MRSA NOT DETECTED 10/10/18 16:20 Urine,Catheterized Urine Culture - Final No Growth (<1,000 CFU/ML) Most Recent Lab Values WBC 6.9 10^3/uL (4.5-11.0) D 10/15/18 07:00 RBC 4.26 10^6/uL (3.5-6.1) 10/15/18 07:00 Hgb 12.0 g/dL (14.0-18.0) L 10/15/18 07:00 Hct 37.2 % (42.0-52.0) L 10/15/18 07:00 MCV 87.3 fl (80.0-105.0) 10/15/18 07:00 MCH 28.2 pg (25.0-35.0) 10/15/18 07:00 MCHC 32.3 g/dl (31.0-37.0) 10/15/18 07:00 RDW 13.2 % (11.5-14.5) 10/15/18 07:00 Plt Count 289 10^3/uL (120.0-450.0) 10/15/18 07:00 MPV 9.1 fl (7.0-11.0) 10/15/18 07:00 Neut % (Auto) 87.6 % (50.0-68.0) H 10/10/18 14:50 Lymph % (Auto) 7.1 % (22.0-35.0) L 10/10/18 14:50 [place] % (Auto) 5.3 % (1.0-6.0) 10/10/18 14:50 Eos % (Auto) 0.0 % (1.5-5.0) L 10/10/18 14:50 Baso % (Auto) 0.0 % (0.0-3.0) 10/10/18 14:50 Lymph # (Auto) 1.5 (1.2-3.4) 10/10/18 14:50 [place] # (Auto) 1.1 (0.1-0.6) H 10/10/18 14:50 Eos # (Auto) 0.0 (0.0-0.7) 10/10/18 14:50 Baso # (Auto) 0.01 K/mm3 (0.0-2.0) 10/10/18 14:50 Absolute Neuts (auto) 18.63 (1.4-6.5) H 10/10/18 14:50 PT 13.5 SECONDS (9.4-12.5) H 10/10/18 14:50 INR 1.22 10/10/18 14:50 APTT 28.2 Seconds (26.9-38.3) 10/10/18 14:50 pO2 71 mm/Hg (30-55) H 10/10/18 18:40 VBG pH 7.39 (7.32-7.43) 10/10/18 18:40 VBG pCO2 45.0 (40-60) 10/10/18 18:40 VBG HCO3 27.2 mmol/l (21-28) 10/10/18 18:40 VBG Total CO2 28.6 mmol.L (22-28) H 10/10/18 18:40 VBG O2 Sat (Calc) 97.4 % (40-65) H 10/10/18 18:40 VBG Base Excess 1.7 mmol/L (0.0-2.0) 10/10/18 18:40 VBG Potassium 4.0 mmol/L (3.6-5.2) 10/10/18 18:40 Sodium 136.0 mmol/L (132-148) 10/10/18 18:40 Chloride 103.0 mmol/L (98-107) 10/10/18 18:40 Glucose 175 mg/dl (75-110) H 10/10/18 18:40 Lactate 2.9 mmol/L (0.7-2.1) H 10/10/18 18:40 FiO2 21.0 % 10/10/18 18:40 Crit Value Called To Avanni 10/10/18 18:40 Crit Value Called By Atc 10/10/18 18:40 Blood Gas Notified Time 1850 10/10/18 18:40 Sodium 138 mmol/L (132-148) 10/15/18 07:00 Potassium 3.9 mmol/L (3.6-5.0) 10/15/18 07:00 Chloride 102 mmol/L (98-107) 10/15/18 07:00 Carbon Dioxide 31 mmol/L (21-33) 10/15/18 07:00 Anion Gap 10 (10-20) 10/15/18 07:00 BUN 15 mg/dL (7-21) 10/15/18 07:00 Creatinine 0.6 mg/dl (0.8-1.5) L 10/15/18 07:00 Est GFR ( Amer) > 60 10/15/18 07:00 Est GFR (Non-Af Amer) > 60 10/15/18 07:00 POC Glucose (mg/dL) 311 mg/dL (65-110) H 10/15/18 11:27 Random Glucose 174 mg/dL (70-110) H 10/15/18 07:00 Calcium 9.0 mg/dL (8.4-10.5) 10/15/18 07:00 Phosphorus 3.1 mg/dL (2.5-4.5) 10/11/18 06:30 Magnesium 1.8 mg/dL (1.7-2.2) 10/12/18 06:20 Total Bilirubin 0.5 mg/dL (0.2-1.3) 10/15/18 07:00 AST 42 U/L (17-59) 10/15/18 07:00 ALT 20 U/L (7-56) 10/15/18 07:00 Alkaline Phosphatase 66 U/L (38-126) 10/15/18 07:00 Troponin I < 0.01 ng/mL 10/10/18 14:50 NT-Pro-B Natriuret Pep 223 pg/mL (0-450) 10/10/18 14:50 Total Protein 6.8 g/dL (5.8-8.3) 10/15/18 07:00 Albumin 3.4 g/dL (3.0-4.8) 10/15/18 07:00 Globulin 3.5 gm/dL 10/15/18 07:00 Albumin/Globulin Ratio 1.0 (1.1-1.8) L 10/15/18 07:00 Procalcitonin 0.07 NG/ML (0.19-0.49) L 10/12/18 06:20 Venous Blood Potassium 4.0 mmol/L (3.6-5.2) 10/10/18 18:40 Urine Color Yellow (YELLOW) 10/10/18 16:20 Urine Appearance Clear (CLEAR) 10/10/18 16:20 Urine pH 5.5 (4.7-8.0) 10/10/18 16:20 Ur Specific [place] >= 1.030 (1.005-1.035) 10/10/18 16:20 Urine Protein Trace mg/dL (<30 mg/dL) H 10/10/18 16:20 Urine Glucose (UA) 250 mg/dL (NEGATIVE) H 10/10/18 16:20 Urine Ketones Trace mg/dL (NEGATIVE) H 10/10/18 16:20 Urine Blood Negative (NEGATIVE) 10/10/18 16:20 Urine Nitrate Negative (NEGATIVE) 10/10/18 16:20 Urine Bilirubin Negative (NEGATIVE) 10/10/18 16:20 Urine Urobilinogen 0.2 E.U./dL (<1 E.U./dL) 10/10/18 16:20 Ur Leukocyte Esterase Negative Sarah/uL (NEGATIVE) 10/10/18 16:20 Urine RBC None /hpf (0-2) 10/10/18 16:20 Urine WBC 5 - 10 /hpf (0-6) H 10/10/18 16:20 Ur Epithelial Cells 4 - 5 /hpf (0-5) 10/10/18 16:20 Urine Bacteria Mod /hpf (NONE) 10/10/18 16:20 Ur L.pneumophila Ag Negative (NEGATIVE) 10/12/18 05:00 - Hospital Course Hospital Course: Laci Negrete D.O. PGY-3, Internal Medicine Resident, Dr. Koch's Service, Discharge Summary 73-year-old male with a past medical history Parkinson's disease, hypertension, diabetes, COPD CAD who presented for fever and cough for approximately 1 week. Patient was noted at home to have a fever of 101.3. Patient called his primary medical doctor and was instructed to come to the emergency department. Patient recently had a cystoscopy been on Augmentin but had been having fevers ever since. Patient ray which showed no active disease. Patient had an abdomen and pelvis CT which revealed the presence of bilateral lower lobe infiltrates with atelectasis. Patient was septic [place] with a leukocytosis of 21.3 as well as a fever of 101 7 with tachycardia. With cefepime and infectious disease was consulted. Blood and urine cultures were drawn. Patient had a low magnesium which was repleted. Patient's carbidopa levodopa for Parkinson's were continued. Patient was seen by pulmonology as well. Was treated with Levaquin, cefepime, vancomycin by infectious disease. Patient had 2- procalcitonin's and negative pancultures and had an improvement in his clinical picture so cefepime was discontinued with plan for a total course of 7 days of Levaquin. Patient received Mucinex for his cough. His Plavix was continued. His leukocytosis resolved. Patient was continued on Amaryl for his diabetes. Examined at bedside this morning patient was seen and examined at bedside this morning with at bedside. Patient is doing significantly better. All questions were welcomed and answered to the verbal satisfaction of the patient and his at bedside. Patient will be discharged home with clear instructions to follow-up with his primary medical doctor in 1 week. Patient to complete 2 more days of Levaquin. - Date & Time of H&P Date of H&P: 10/15/18 Time of H&P: 16:22 Discharge Exam - Head Exam Head Exam: ATRAUMATIC, NORMOCEPHALIC - Eye Exam Eye Exam: EOMI. absent: Scleral icterus - ENT Exam ENT Exam: Mucous Membranes Moist - Neck Exam Neck exam: Normal Inspection - Respiratory Exam Respiratory Exam: absent: Rales, Rhonchi, Wheezes - Cardiovascular Exam Cardiovascular Exam: +S1, +S2. absent: Rubs - GI/Abdominal Exam GI & Abdominal Exam: Soft. absent: Distended - Neurological Exam Neurological exam: Alert Additional comments: parkinsonian facies - Skin Skin Exam: Dry, Warm Discharge Plan - Discharge Medications Prescriptions: Levofloxacin [Levaquin] 500 mg PO DAILY #2 tablet - Follow Up Plan Condition: GOOD Disposition: HOME/ ROUTINE Instructions: Preventing Falls in the Older Adult, Community-Acquired Pneumonia in Adults, Pneumococcal Polysaccharide Vaccine (23-Valent), Diabetic Meal Planning Additional Instructions: Instructed to follow up with Primary doctor in on e week. Instructed if patient have elevated temperature, cough, chest pain or discomfort return to the emergency room. Referrals: Chris Emanuel MD [Primary Care Provider] - <Jermaine Koch - Last Filed: 10/15/18 16:33> Provider - Provider Date of Admission: 10/10/18 16:06 Attending physician: Jermaine Koch MD Primary care physician: Chris Emanuel MD Consults: 10/10/18 16:07 Consult [Physician Consult] Stat Comment: Consulting Provider: Jose Whitley Consulting Physician: Jose Whitley Reason for Consult: sepsis 10/11/18 08:11 Physician Consult Routine Comment: Consulting Provider: Don Gonzalez Consulting Physician: Don Gonzalez Reason for Consult: PNA Hospital Course - Lab Results Lab Results: Micro Results 10/10/18 15:15 Blood Blood Culture - Final NO GROWTH AFTER 5 DAYS 10/10/18 15:15 Blood Gram Stain - Final TEST NOT PERFORMED 10/10/18 14:50 Blood Blood Culture - Final NO GROWTH AFTER 5 DAYS 10/10/18 14:50 Blood Gram Stain - Final TEST NOT PERFORMED 10/12/18 06:30 Sputum Gram Stain - Final 10/12/18 06:30 Sputum Sputum Culture - Final NORMAL SAPROPHYTIC SHALINI 10/11/18 06:23 Naris MRSA Culture (Admit) - Final MRSA NOT DETECTED 10/10/18 16:20 Urine,Catheterized Urine Culture - Final No Growth (<1,000 CFU/ML) Most Recent Lab Values WBC 6.9 10^3/uL (4.5-11.0) D 10/15/18 07:00 RBC 4.26 10^6/uL (3.5-6.1) 10/15/18 07:00 Hgb 12.0 g/dL (14.0-18.0) L 10/15/18 07:00 Hct 37.2 % (42.0-52.0) L 10/15/18 07:00 MCV 87.3 fl (80.0-105.0) 10/15/18 07:00 MCH 28.2 pg (25.0-35.0) 10/15/18 07:00 MCHC 32.3 g/dl (31.0-37.0) 10/15/18 07:00 RDW 13.2 % (11.5-14.5) 10/15/18 07:00 Plt Count 289 10^3/uL (120.0-450.0) 10/15/18 07:00 MPV 9.1 fl (7.0-11.0) 10/15/18 07:00 Neut % (Auto) 87.6 % (50.0-68.0) H 10/10/18 14:50 Lymph % (Auto) 7.1 % (22.0-35.0) L 10/10/18 14:50 [place] % (Auto) 5.3 % (1.0-6.0) 10/10/18 14:50 Eos % (Auto) 0.0 % (1.5-5.0) L 10/10/18 14:50 Baso % (Auto) 0.0 % (0.0-3.0) 10/10/18 14:50 Lymph # (Auto) 1.5 (1.2-3.4) 10/10/18 14:50 [place] # (Auto) 1.1 (0.1-0.6) H 10/10/18 14:50 Eos # (Auto) 0.0 (0.0-0.7) 10/10/18 14:50 Baso # (Auto) 0.01 K/mm3 (0.0-2.0) 10/10/18 14:50 Absolute Neuts (auto) 18.63 (1.4-6.5) H 10/10/18 14:50 PT 13.5 SECONDS (9.4-12.5) H 10/10/18 14:50 INR 1.22 10/10/18 14:50 APTT 28.2 Seconds (26.9-38.3) 10/10/18 14:50 pO2 71 mm/Hg (30-55) H 10/10/18 18:40 VBG pH 7.39 (7.32-7.43) 10/10/18 18:40 VBG pCO2 45.0 (40-60) 10/10/18 18:40 VBG HCO3 27.2 mmol/l (21-28) 10/10/18 18:40 VBG Total CO2 28.6 mmol.L (22-28) H 10/10/18 18:40 VBG O2 Sat (Calc) 97.4 % (40-65) H 10/10/18 18:40 VBG Base Excess 1.7 mmol/L (0.0-2.0) 10/10/18 18:40 VBG Potassium 4.0 mmol/L (3.6-5.2) 10/10/18 18:40 Sodium 136.0 mmol/L (132-148) 10/10/18 18:40 Chloride 103.0 mmol/L (98-107) 10/10/18 18:40 Glucose 175 mg/dl (75-110) H 10/10/18 18:40 Lactate 2.9 mmol/L (0.7-2.1) H 10/10/18 18:40 FiO2 21.0 % 10/10/18 18:40 Crit Value Called To Oscar 10/10/18 18:40 Crit Value Called By Atc 10/10/18 18:40 Blood Gas Notified Time 1850 10/10/18 18:40 Sodium 138 mmol/L (132-148) 10/15/18 07:00 Potassium 3.9 mmol/L (3.6-5.0) 10/15/18 07:00 Chloride 102 mmol/L (98-107) 10/15/18 07:00 Carbon Dioxide 31 mmol/L (21-33) 10/15/18 07:00 Anion Gap 10 (10-20) 10/15/18 07:00 BUN 15 mg/dL (7-21) 10/15/18 07:00 Creatinine 0.6 mg/dl (0.8-1.5) L 10/15/18 07:00 Est GFR ( Amer) > 60 10/15/18 07:00 Est GFR (Non-Af Amer) > 60 10/15/18 07:00 POC Glucose (mg/dL) 311 mg/dL (65-110) H 10/15/18 11:27 Random Glucose 174 mg/dL (70-110) H 10/15/18 07:00 Calcium 9.0 mg/dL (8.4-10.5) 10/15/18 07:00 Phosphorus 3.1 mg/dL (2.5-4.5) 10/11/18 06:30 Magnesium 1.8 mg/dL (1.7-2.2) 10/12/18 06:20 Total Bilirubin 0.5 mg/dL (0.2-1.3) 10/15/18 07:00 AST 42 U/L (17-59) 10/15/18 07:00 ALT 20 U/L (7-56) 10/15/18 07:00 Alkaline Phosphatase 66 U/L (38-126) 10/15/18 07:00 Troponin I < 0.01 ng/mL 10/10/18 14:50 NT-Pro-B Natriuret Pep 223 pg/mL (0-450) 10/10/18 14:50 Total Protein 6.8 g/dL (5.8-8.3) 10/15/18 07:00 Albumin 3.4 g/dL (3.0-4.8) 10/15/18 07:00 Globulin 3.5 gm/dL 10/15/18 07:00 Albumin/Globulin Ratio 1.0 (1.1-1.8) L 10/15/18 07:00 Procalcitonin 0.07 NG/ML (0.19-0.49) L 05/10/19 06:20 Venous Blood Potassium 4.0 mmol/L (3.6-5.2) 10/10/18 18:40 Urine Color Yellow (YELLOW) 10/10/18 16:20 Urine Appearance Clear (CLEAR) 10/10/18 16:20 Urine pH 5.5 (4.7-8.0) 10/10/18 16:20 Ur Specific [place] >= 1.030 (1.005-1.035) 10/10/18 16:20 Urine Protein Trace mg/dL (<30 mg/dL) H 10/10/18 16:20 Urine Glucose (UA) 250 mg/dL (NEGATIVE) H 10/10/18 16:20 Urine Ketones Trace mg/dL (NEGATIVE) H 10/10/18 16:20 Urine Blood Negative (NEGATIVE) 10/10/18 16:20 Urine Nitrate Negative (NEGATIVE) 10/10/18 16:20 Urine Bilirubin Negative (NEGATIVE) 10/10/18 16:20 Urine Urobilinogen 0.2 E.U./dL (<1 E.U./dL) 10/10/18 16:20 Ur Leukocyte Esterase Negative Sarah/uL (NEGATIVE) 10/10/18 16:20 Urine RBC None /hpf (0-2) 10/10/18 16:20 Urine WBC 5 - 10 /hpf (0-6) H 10/10/18 16:20 Ur Epithelial Cells 4 - 5 /hpf (0-5) 10/10/18 16:20 Urine Bacteria Mod /hpf (NONE) 10/10/18 16:20 Ur L.pneumophila Ag Negative (NEGATIVE) 10/12/18 05:00 - Hospital Course Hospital Course: Pt seen and examined by me. I have reviewed the note of the medical insurance clerk and I agree with it. I have discussed the assessment and plan with the resident. I have reviewed the medications and the last labs.
--- NOTE | 2018-10-16 01:02 | DS ---
HOSPITAL COURSE: The patient was seen and examined. I do agree with the note of the medical i d sales. I was involved in the plan of care. The patient was admitted to the hospital because of hospital-acquired pneumonia. The patient was given IV antibiotics and had improvement of his symptoms. The patient had sepsis and is resolved. The patient has diabetes type 2 and has been controlled with the diabetes medication Amaryl. The IV antibiotics were changed over to Levaquin. He is going to be discharged home today to follow up with his primary care doctor. I did speak to the patient's daughter to give her an update and the patient's diagnosis and plan of care. She is comfortable taking the patient home. I did write for the Levaquin to continue when the patient is discharged. Jermaine Koch MD
== END 2018-10-15 14:13 | disposition home or self-care (01) | DRG 871 ==
LOC: ED 14:12 → ERH 16:06 → 2RNO 18:40 → 5RNO 10-13 13:24
PROVIDERS: ADMIT Internal Medicine Nephrology; ATTEND Internal Medicine Nephrology
PROC: 3E0F7GC Introduction of Other Therapeutic Substance into Respiratory Tract, Via Natural or Artificial Opening (ICD-10-PCS; principal; 2018-10-11)
DX: A41.9 Sepsis, unspecified organism (principal); J18.9 Pneumonia, unspecified organism; J44.0 Chronic obstructive pulmonary disease with (acute) lower respiratory infection; G23.1 Progressive supranuclear ophthalmoplegia [Steele-Richardson-Olszewski]; E11.51 Type 2 diabetes mellitus with diabetic peripheral angiopathy without gangrene; I10 Essential (primary) hypertension; G20 Parkinson's disease; Y95 Nosocomial condition; I25.10 Atherosclerotic heart disease of native coronary artery without angina pectoris; Z79.02 Long term (current) use of antithrombotics/antiplatelets; Z79.82 Long term (current) use of aspirin